=== PATIENT | female | born 1980 | race African-American/Black ===

== ENCOUNTER 2016-12-19 20:19 | Emergency (ER) | payer OTHER ==
[~2016-12-19] VITALS: Ht 152.4 cm; Wt 635.0 kg
[~2016-12-19 20:19] MED LIST: FLUT1DIS5 IH; PRED1TAB PO
[2016-12-19] MEDS ORDERED: METHYLPREDNISOLONE SOD SUCC 125 MG/2 ML VIAL IV STA (22:17)
[2016-12-19] MEDS ORDERED: IPRATROPIUM/ALBUTEROL 0.5-3(2.5)MG/3ML NEB HHN ONE (22:30)
[2016-12-19] MEDS ORDERED: MAGNESIUM 2 G PREMIX 50 ML IV ONE (22:30)
[2016-12-20 00:13] VITALS: BP 123/72
== END 2016-12-20 00:30 | disposition home or self-care (01) ==
LOC: ER 20:19
DX: J45.901 Unspecified asthma with (acute) exacerbation (principal)
CPT/HCPCS: 94640; 96365; 96375; 99284; J2930; J3475; Z7610; J7620